=== PATIENT | male | born 1975 | race Two or more races ===

== ENCOUNTER → 2017-04-30 | Outpatient (CLI) | payer OTHER | END | disposition home or self-care (01) | LOC: PPH VACUNA 15:20 | DX: Z23 Encounter for immunization (principal) ==

== ENCOUNTER 2018-09-02 07:36 | Outpatient (CLI) | payer OTHER | END 2018-09-02 08:01 | disposition home or self-care (01) | LOC: TOM 07:36 | DX: K40.90 Unilateral inguinal hernia, without obstruction or gangrene, not specified as recurrent (principal); R10.2 Pelvic and perineal pain; R10.84 Generalized abdominal pain ==

== ENCOUNTER → 2018-09-19 | Outpatient (CLI) | payer OTHER | END | disposition home or self-care (01) | LOC: SONOGRAMA 14:32 | DX: I86.1 Scrotal varices (principal); N50.89 Other specified disorders of the male genital organs ==

== ENCOUNTER 2021-06-11 10:49 | Outpatient (CLI) | payer OTHER | END 2021-06-11 11:00 | disposition home or self-care (01) | LOC: RAD 10:49 → SONOGRAMA 10:49 → RAD 11:00 | PROVIDERS: ATTEND Family Medicine | DX: M20.011 Mallet finger of right finger(s) (principal) ==